=== PATIENT | female | born 1980 | race African-American/Black ===

== ENCOUNTER 2017-04-17 12:59 | Emergency (ER) | payer MEDICAID ==
[~2017-04-17] VITALS: Ht 152.4 cm; Wt 51.3 kg
[~2017-04-17 12:59] MED LIST: BENTYL10 MG ORAL; JUNEL1 EAC1 PO; RANITIDINE HCL150 MG ORAL; ZOFRAN ODT4 MG ORAL
[2017-04-17] MEDS ORDERED: IBUPROFEN600 MG ORAL (13:36)
[2017-04-17] MEDS ORDERED: Clindamycin 600mg 50 ML IVPB ONE (13:45)
[2017-04-17] MEDS ORDERED: Ketorolac 30mg Inj IV ONE (13:45)
[2017-04-17] MEDS ORDERED: CLINDAMYCIN HC300 MG ORAL (14:40)
[2017-04-17] MEDS ORDERED: NORCO 5-325 TA1 EAC1 ORAL (14:40)
[2017-04-17 14:42] VITALS: BP 117/72
--- NOTE | 2017-04-17 19:56 | Emergency Room Report ---
History of Present Illness General Chief Complaint: Toothache Source: Patient Present Illness HPI The patient is a 37 old female presenting for a left-sided mouth pain for the past 2 days. She states the pain has been progressing and is now a 7/10 dull ache. She also noticed swelling around the left lower teeth. Pain worse with chewing. She has been trying [id number] pain medications which has not been helping. She denies any fever or chills. She denies other symptoms including sore throat, difficulty swallowing, fever, chills Allergies: Coded Allergies: PENICILLINS (Verified Allergy, Unknown, 03/22/16) Patient History Past Medical History: see triage record Pertinent Family History: none Last Menstrual Period: Nexplanon to left upper arm. Now: No Reviewed Nursing Documentation: PMH: Agreed, PSxH: Agreed Review of Systems All Other Systems: negative except mentioned in HPI Physical Exam Vital Signs Date Time Temp Pulse Resp B/P (MAP) Pulse Ox O2 Delivery O2 Flow Rate FiO2 04/17/17 13:32 98.4 89 21 117/72 98 Room Air Sp02 EP Interpretation: reviewed, normal General Appearance: no apparent distress, alert, GCS 15, non-toxic Head: normocephalic, atraumatic Eyes: bilateral eye normal inspection, bilateral eye PERRL ENT: hearing grossly normal, normal pharynx, no angioedema, normal voice, uvula midline, other - TTP over the L lower gums. No abscess seen. Mild L lower facial swelling. No induration or fluctuance Neck: full range of motion, supple/symm/no masses Respiratory: chest non-tender, lungs clear, normal breath sounds, speaking full sentences Musculoskeletal: back normal, gait/station normal, normal range of motion, non- tender Neurologic: alert, oriented x3, responsive, motor strength/tone normal, sensory intact, speech normal Psychiatric: judgement/insight normal, memory normal, mood/affect normal, no suicidal/homicidal ideation Skin: normal color, no rash, warm/dry, well hydrated Lymphatic: no adenopathy Medical Decision Making PA Attestation Dr. Joseph is my supervising physician. Patient management was discussed with my supervising physician Diagnostic Impression: Primary Impression: Dental infection ER Course The patient is a 37 old female presenting for a left-sided mouth pain for the past 2 days. Diagnoses considered but not limited to: Dental rosie, dental abscess, toothache , gingivitis, among others PE: Afebrile. NAD TTP over the L lower gums. No abscess seen. Mild L lower facial swelling. No induration or fluctuance No lymphad The patient is given a first dose of antibiotics here and will be discharged with prescription for clindamycin as she has penicillin allergy. She will follow up with dentist as soon as possible. She is given indications to return Last Vital Signs Date Time Temp Pulse Resp B/P (MAP) Pulse Ox O2 Delivery O2 Flow Rate FiO2 04/17/17 14:42 98.4 21 117/72 98 Room Air 04/17/17 13:32 89 Status: improved Disposition: HOME, SELF-CARE Condition: Improved Scripts Hydrocodone Bit/Acetaminophen 5-325* (NORCO 5-325 TABLET*) 1 Each Tablet 1 TAB ORAL Q6HR Y for For Pain, #10 TAB Prov: JOSEFA IVAN 04/17/17 Clindamycin Hcl (CLINDAMYCIN HCL) 300 Mg Capsule 300 MG ORAL Q6HR, #28 CAP Prov: JOSEFA IVAN 04/17/17 Patient Instructions: Dental Pain Additional Instructions: I discussed my findings with the patient. All questions and concerns have been answered. Treatment and medication compliance have been addressed. I advised the patient that they need to follow up with PMD in 3-5 days. Return to ED if symptoms worsen, new symptoms arise, or if needed for any reason. Patient verbalized understanding of discharge instructions. Please follow up with dentist for further care JOSEFA IVAN Apr 17, 2017 19:56
== END 2017-04-17 14:42 | disposition home or self-care (01) ==
LOC: EMR 14:15
DX: K04.7 Periapical abscess without sinus (principal); Z88.0 Allergy status to penicillin
CPT/HCPCS: 96365; 96375; 99284; J1885; S0077

== ENCOUNTER 2019-09-15 15:37 | Emergency (ER) | payer OTHER ==
[~2019-09-15] VITALS: Ht 153 cm; Wt 54.0 kg
[~2019-09-15 15:37] MED LIST changes: +CLINDAMYCIN HC300 MG ORAL; +DICYCLOMINE HCL10 MG ORAL; +FAMOTIDINE20 MG ORAL; +IBUPROFEN600 MG ORAL; +NKM; +NORCO 5-325 TA1 EAC1 ORAL; +ONDANSETRON ODT4 MG BC
[2019-09-15 15:49] VITALS: BP 128/74
--- NOTE | 2019-09-15 15:49 | NUR ---
ED Nurse Note: Patient walked in to ED from home c/o lower abdominal cramps x2 days ago. Denies nausea, vomiting, diarrhea. Afebrile. Per pt, she has an implant control (Nexplanon), had her menstrual period 2 days ago and reports passing of blood clots. No SOB. VSS.
--- NOTE | 2019-09-15 16:05 | NUR ---
ED Nurse Note: IV line established. Blood and urine specimen collected and sent to lab.
[2019-09-15 16:19] LABS: APPEARANCE,URINE CLEAR; BILIRUBIN, URINE NEGATIVE (NEGATIVE); COLOR,URINE PALE YELLOW; GLUCOSE, URINE (UA) NEGATIVE (NEGATIVE); KETONES,URINE 2+ (NEGATIVE); LEUKOCYTE ESTERASE ,URINE NEGATIVE (NEGATIVE); NITRITE,URINE NEGATIVE (NEGATIVE); PH,URINE 5 (4.5-8.0); PROTEIN,URINE NEGATIVE (NEGATIVE); UROBILINOGEN,URINE NORMAL MG/DL (0.0-1.0)
[2019-09-15 16:39] LABS: ANION GAP 12 mmol/L (5-15); BLOOD UREA NITROGEN 19 mg/dL (7-18); CALCIUM 8.8 MG/DL (8.5-10.1); CARBON DIOXIDE 22 MMOL/L (21-32); CHLORIDE 104 MMOL/L (98-107); CREATININE 0.7 MG/DL (0.55-1.30); SODIUM 138 MMOL/L (136-145)
[2019-09-15 16:43] LABS: ALANINE AMINOTRANSFERASE 29 U/L (12-78); ALBUMIN 3.5 G/DL (3.4-5.0); ALKALINE PHOSPHATASE 162 U/L (46-116); ASPARTATE AMINO TRANSFERASE 19 U/L (15-37); BILIRUBIN,TOTAL 0.3 MG/DL (0.2-1.0)
[2019-09-15] MEDS ORDERED: Morphine Sulfate 2mg/ml Inj(IV/IM USE ONLY) IVP ONE (17:00)
[2019-09-15] MEDS ORDERED: Omnipaque-300 100ml vial INJ PRN (17:00)
[2019-09-15 17:02] LABS: BASOPHILS % (AUTO) 1.9 % (0.0-2.0); EOSINOPHILS % (AUTO) 1.5 % (0.0-3.0); HEMATOCRIT 40.7 % (37.0-47.0); HEMOGLOBIN 12.4 G/DL (12.0-16.0); LYMPHOCYTES % (AUTO) 30.3 % (20.0-45.0); MEAN CORPUSCULAR VOLUME 76 FL (80-99); MONOCYTES % (AUTO) 10.7 % (1.0-10.0); NEUTROPHILS % (AUTO) 55.6 % (45.0-75.0); PLATELET COUNT 173 K/UL (150-450); RED BLOOD COUNT 5.38 M/UL (4.20-5.40); WHITE BLOOD COUNT 9.3 K/UL (4.8-10.8)
--- NOTE | 2019-09-15 17:05 | NUR ---
ED Nurse Note: Pt was taken to CT via wc.
--- NOTE | 2019-09-15 17:21 | NUR ---
ED Nurse Note: Pt returned from CT.
--- NOTE | 2019-09-15 17:39 | Diagnostic Imaging Report ---
EXAM: CT Abdomen and Pelvis With Intravenous Contrast CLINICAL HISTORY: PAIN TECHNIQUE: Axial computed tomography images of the abdomen and pelvis with intravenous contrast. CTDI is 3.4 mGy and DLP is 168 mGy-cm. One or more of the following dose reduction techniques were used: automated exposure control, adjustment of the mA and/or kV according to patient size, use of iterative reconstruction technique. COMPARISON: No relevant prior studies available. FINDINGS: The lung bases demonstrate no acute infiltrate. The liver, biliary tree, pancreas, spleen, kidneys, and adrenal glands are within normal limits. There is no bowel obstruction or perforation. The appendix is unremarkable. There is a right adnexal cyst measuring 4.1 x 3.2 cm in greatest anteroposterior and craniocaudal dimensions on series 3, image 63. This is likely of ovarian origin. Atrophic truncal musculature. No acute fracture. No abdominal aortic aneurysm. IMPRESSION: 4.1 cm right adnexal cyst, probably of ovarian origin. Atrophic truncal musculature.
--- NOTE | 2019-09-15 17:41 | Emergency Room Report ---
History of Present Illness General Chief Complaint: Abdominal Pain Present Illness HPI 39-year-old female with no significant past medical history here complaining of a 7 out of 10 suprapubic pain that started 2 days ago and has been spotting and clotting for the past [address] years ago and. About 3 weeks ago. Patient does not know the status and reports that she is often sexually active. Denies any vaginal discharge at this time. Complains of dysuria urinary frequency. Reports her history of ovarian cyst however does not know which side and has not been seen by baster hand in a long time. Denies any diffuse abdominal pain, nausea vomiting diarrhea. Has not taken medication for symptom relief. 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 Does not take anything within the ibuprofen family. Patient is nontender with no guarding noted. Denies tobacco smoke, alcohol intake however reports that she often smokes marijuana. Allergies: Coded Allergies: PENICILLINS (Verified Allergy, Severe, 04/15/19) Blueberry (Verified Allergy, Unknown, 04/15/19) Quinteros (Verified Allergy, Unknown, 04/15/19) COVID-19 Screening Contact w/high risk pt: No Recent Travel to affected area: No Experienced COVID-19 symptoms?: No COVID-19 Testing performed CORRECTIONAL CASEWORK SPECIALIST: No Patient History Past Medical History: see triage record Past Surgical History: none Pertinent Family History: none Social History: Reports: drug use - marijuana Last Menstrual Period: 09/13/2019 Now: No Immunizations: UTD Reviewed Nursing Documentation: PMH: Agreed; PSxH: Agreed Review of Systems All Other Systems: negative except mentioned in HPI Physical Exam Vital Signs Date Time Temp Pulse Resp B/P (MAP) Pulse Ox O2 Delivery O2 Flow Rate FiO2 09/15/19 15:42 98.2 84 20 128/74 (92) 99 Room Air Sp02 EP Interpretation: reviewed, normal General Appearance: no apparent distress, alert, GCS 15, non-toxic Head: normocephalic, atraumatic Eyes: bilateral eye normal inspection, bilateral eye PERRL ENT: hearing grossly normal, normal pharynx, no angioedema, normal voice Neck: full range of motion, supple/symm/no masses Respiratory: chest non-tender, lungs clear, normal breath sounds, no rhonchi, no respiratory distress, no retraction, speaking full sentences Cardiovascular #1: regular rate, rhythm, no edema Gastrointestinal: non tender, soft, no mass, no organomegaly, no peritonitis, no bruit, no guarding, no hernia, no pulsatile mass Rectal: deferred Genitourinary: no CVA tenderness Musculoskeletal: back normal, normal range of motion, digits/nails normal, no calf tenderness Neurologic: alert, motor strength/tone normal, oriented x3, sensory intact, responsive, speech normal Psychiatric: judgement/insight normal, memory normal, mood/affect normal, no suicidal/homicidal ideation Skin: no rash Lymphatic: no adenopathy Medical Decision Making PA Attestation All my diagnosis and treatment plans were reviewed ad discussed with my supervising physician Dr. Burgos Diagnostic Impression: Primary Impression: Right ovarian cyst Additional Impression: UTI (urinary tract infection) ER Course 39-year-old female with no significant past medical history here complaining of a 7 out of 10 suprapubic pain that started 2 days ago and has been spotting and clotting for the past 2 days. Irregular menstrual. DrCarolina years ago and. About 3 weeks ago. Patient does not know the status and reports that she is often sexually active. Denies any vaginal discharge at this time. Complains of dysuria urinary frequency. Reports her history of ovarian cyst however does not know which side and has not been seen by baster hand in a long time. Denies any diffuse abdominal pain, nausea vomiting diarrhea. Has not taken medication for symptom relief. 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 Does not take anything within the ibuprofen family. Patient is nontender with no guarding noted. Denies tobacco smoke, alcohol intake however reports that she often smokes marijuana. Ddx considered but are not limited to: UTI, pyelonephritis, urinary incontinence , prolapsed bladder, uterine fibroids, ovarian cyst rupture, ovarian cyst rupture, ectopic versus 10 versus spontaneous Vital signs: are WNL, pt. is afebrile H&PE are most consistent with: Right ovarian cyst, UTI ORDERS: UA, urine cx, CBC, CMP, type and screen, [facility] ordered ultrasound however after status post negative primary CT scan of abdomen pelvis with contrast, Tylenol, Macrobid ED INTERVENTIONS: 1 g of morphine IV and Zofran IV, Tylenol DISCHARGE: At this time pt. is stable for d/c to home. Will provide printed patient care instructions, and any necessary prescriptions. Care plan and follow up instructions have been discussed with the patient prior to discharge. Patient to follow-up with gynecology as directed, increase oral hydration, if worsening symptoms return to emergency room CT/MRI/US Diagnostic Results CT/MRI/US Diagnostic Results : Imaging Test Ordered: CT abdomen pelvis with contrast Impression Right-sided ovarian cyst about 4.1 cm nonruptured otherwise normal Last Vital Signs Date Time Temp Pulse Resp B/P (MAP) Pulse Ox O2 Delivery O2 Flow Rate FiO2 09/15/19 16:52 98.3 09/15/19 15:49 84 20 128/74 99 Room Air Disposition: HOME, SELF-CARE Condition: Stable Scripts Nitrofurantoin Monohyd/M-Cryst* (MACROBID 100 MG*) 100 Mg Capsule 100 MG ORAL EVERY 12 HOURS for 7 Days, #14 CAP Prov: Brandi Lucas 09/15/19 Acetaminophen* (TYLENOL EXTRA STRENGTH*) 500 Mg Tablet 1000 MG ORAL Q8H PRN for Prn Headache/Temp > 101, #30 TAB 0 Refills Prov: Brandi Lucas 09/15/19 Referrals: NON PHYSICIAN (PCP) Patient Instructions: Ovarian Cyst, [id number] Additional Instructions: Take medication as directed, follow-up with your primary doctor for referral to baster hand, if worsening symptoms return to the emergency room. Brandi Lucas Sep 15, 2019 17:40
[2019-09-15] MEDS ORDERED: TYLENOL EXTRA500 MG ORAL (17:42)
[2019-09-15] MEDS ORDERED: NITROFURANTOIN100 M2 ORAL (17:47)
[2019-09-15 17:50] VITALS: BP 119/71
--- NOTE | 2019-09-15 17:50 | NUR ---
ED Nurse Note: Pt cleared by ERPA for discharge. DC instructions/prescription was given and explained to pt and verbalized understanding of teachings. All medical deviecs such as ID band and IV line removed. Pt is AAO x4, ambulatory and left with all personal belongings. P/u by .
== END 2019-09-15 17:50 | disposition home or self-care (01) ==
LOC: EMR 16:00
DX: N83.201 Unspecified ovarian cyst, right side (principal); N39.0 Urinary tract infection, site not specified; Z88.0 Allergy status to penicillin; Z91.018 Allergy to other foods; F12.90 Cannabis use, unspecified, uncomplicated
CPT/HCPCS: 36415; 74177; 80053; 81003; 81025; 85025; 86850; 86900; 86901; 96374; 96375; J2270; J2405; Q9967; Z7502; 99284

== ENCOUNTER 2019-09-19 11:54 | Emergency (ER) | payer OTHER ==
[~2019-09-19] VITALS: Ht 154.9 cm; Wt 51.3 kg
[~2019-09-19 11:54] MED LIST changes: +NITROFURANTOIN100 M2 ORAL; +TYLENOL EXTRA500 MG ORAL
[2019-09-19 12:18] VITALS: BP 121/69
--- NOTE | 2019-09-19 12:21 | NUR ---
ED Nurse Note: Patient walked in to ED d/t abdominal cramping with heavy bleeding since this morning at 0430. Per pt, she was here already last sunday and was dx with fibroids. Patient presented with crumping pain 12/10, stated has heavy bleeding, AAO x4, VSS at this time, skin is warm to touch, has even non-labored breathing.
[2019-09-19] MEDS ORDERED: Morphine Sulfate 4mg/ml Inj (IV USE ONLY) IVP ONE (12:45)
--- NOTE | 2019-09-19 13:00 | NUR ---
ED Nurse Note: us at bedside
[2019-09-19] MEDS ORDERED: Solu-MEDROL 125mg Inj IVP ONE (13:15)
[2019-09-19] MEDS ORDERED: DiphenhydrAMINE 50mg/ml Inj IVP ONE (13:15)
[2019-09-19 13:23] LABS: ANION GAP 11 mmol/L (5-15); BASOPHILS % (AUTO) 1.6 % (0.0-2.0); BLOOD UREA NITROGEN 12 mg/dL (7-18); CALCIUM 9.1 MG/DL (8.5-10.1); CARBON DIOXIDE 23 MMOL/L (21-32); CHLORIDE 105 MMOL/L (98-107); CREATININE 0.5 MG/DL (0.55-1.30); EOSINOPHILS % (AUTO) 1.8 % (0.0-3.0); HEMATOCRIT 42.9 % (37.0-47.0); HEMOGLOBIN 13.1 G/DL (12.0-16.0); LYMPHOCYTES % (AUTO) 32.2 % (20.0-45.0); MEAN CORPUSCULAR VOLUME 75 FL (80-99); MONOCYTES % (AUTO) 9.6 % (1.0-10.0); NEUTROPHILS % (AUTO) 54.9 % (45.0-75.0); PLATELET COUNT 181 K/UL (150-450); POTASSIUM 4.4 MMOL/L (3.5-5.1); RED BLOOD COUNT 5.71 M/UL (4.20-5.40); RED CELL DISTRIBUTION WIDTH 13.7 % (11.6-14.8); SODIUM 139 MMOL/L (136-145); WHITE BLOOD COUNT 7.3 K/UL (4.8-10.8)
[2019-09-19 13:28] LABS: ALANINE AMINOTRANSFERASE 40 U/L (12-78); ALBUMIN 3.7 G/DL (3.4-5.0); ALBUMIN/GLOBULIN RATIO 0.9 (1.0-2.7); ALKALINE PHOSPHATASE 169 U/L (46-116); ASPARTATE AMINO TRANSFERASE 32 U/L (15-37); BILIRUBIN,TOTAL 0.2 MG/DL (0.2-1.0)
[2019-09-19 13:36] LABS: APPEARANCE,URINE CLEAR; BILIRUBIN, URINE NEGATIVE (NEGATIVE); GLUCOSE, URINE (UA) NEGATIVE (NEGATIVE); KETONES,URINE NEGATIVE (NEGATIVE); LEUKOCYTE ESTERASE ,URINE 1+ (NEGATIVE); NITRITE,URINE NEGATIVE (NEGATIVE); PH,URINE 5 (4.5-8.0); PROTEIN,URINE NEGATIVE (NEGATIVE); UROBILINOGEN,URINE NORMAL MG/DL (0.0-1.0)
[2019-09-19 13:40] LABS: COLOR,URINE YELLOW
--- NOTE | 2019-09-19 14:12 | Diagnostic Imaging Report ---
Indication: Pelvic pain. Patient reportedly not Technique: Transabdominal and endovaginal pelvic ultrasound was performed. Findings: Uterus is normal in size. Endometrium measures 12 mm in thickness, within normal limits for the reproductive age female. Small probable nabothian cyst noted within the cervix. There is a 3 cm simple appearing cyst in the right ovary. No left adnexal lesion is demonstrated. Color and Doppler flow is demonstrated in the bilateral ovaries. No free pelvic fluid is demonstrated. IMPRESSION: Approximately 3 cm simple appearing cyst in the right ovary. Color and Doppler flow is demonstrated in the bilateral ovaries. No free pelvic fluid is demonstrated.
[2019-09-19 14:14] VITALS: BP 119/79
--- NOTE | 2019-09-19 14:14 | NUR ---
ER DISCHARGE NOTE: Patient is cleared to be discharged per ERMD, pt is aox4, on room air, with stable vital signs. pt was given dc and prescription instructions, pt was able to verbalize understanding, pt id band and iv site removed without complications. pt is able to ambulate with steady gait. pt took all belongings.
--- NOTE | 2019-09-20 16:22 | Emergency Room Report ---
History of Present Illness General Chief Complaint: Abdominal Pain Source: Patient Present Illness HPI 39-year-old female presents with abdominal pain and vaginal bleeding. Was seen here last week for similar presentation. Had a CT which showed a ovarian cyst. Patient states she has had persistent bleeding since. Pain is dull, 5 out of 10, nonradiating. No other aggravating relieving factors. Denies any other associated symptoms Allergies: Coded Allergies: PENICILLINS (Verified Allergy, Severe, 04/15/19) Blueberry (Verified Allergy, Unknown, 04/15/19) Quinteros (Verified Allergy, Unknown, 04/15/19) MORPHINE (Verified Allergy, Unknown, 09/19/19) COVID-19 Screening Contact w/high risk pt: No Recent Travel to affected area: No Experienced COVID-19 symptoms?: No COVID-19 Testing performed PATIENT TRANSITION SPECIALIST: No Patient History Past Medical History: none Past Surgical History: none Pertinent Family History: none Social History: Denies: smoking, alcohol use, drug use Now: No Immunizations: UTD Reviewed Nursing Documentation: PMH: Agreed; PSxH: Agreed Review of Systems All Other Systems: negative except mentioned in HPI Physical Exam Vital Signs Date Time Temp Pulse Resp B/P (MAP) Pulse Ox O2 Delivery O2 Flow Rate FiO2 09/19/19 12:05 98.1 78 20 121/69 (86) 97 Room Air Sp02 EP Interpretation: reviewed, normal General Appearance: no apparent distress, alert, GCS 15, non-toxic Head: normocephalic, atraumatic Eyes: bilateral eye normal inspection, bilateral eye PERRL ENT: hearing grossly normal, normal pharynx, no angioedema, normal voice Neck: full range of motion, supple/symm/no masses Respiratory: chest non-tender, lungs clear, normal breath sounds, speaking full sentences Cardiovascular #1: regular rate, rhythm, no edema Cardiovascular #2: 2+ carotid (R), 2+ carotid (L), 2+ radial (R), 2+ radial (L) , 2+ dorsalis pedis (R), 2+ dorsalis pedis (L) Gastrointestinal: normal bowel sounds, non tender, soft, non-distended, no guarding, no rebound Rectal: deferred Genitourinary: normal inspection, no CVA tenderness Musculoskeletal: back normal, normal range of motion, gait/station normal, non- tender Neurologic: alert, motor strength/tone normal, oriented x3, sensory intact, responsive, speech normal Psychiatric: judgement/insight normal, memory normal, mood/affect normal, no suicidal/homicidal ideation Reflexes: 3+ bicep (R), 3+ bicep (L), 3+ tricep (R), 3+ tricep (L), 3+ knee (R) , 3+ knee (L) Lymphatic: no adenopathy Medical Decision Making Diagnostic Impression: Primary Impression: Dysfunctional uterine bleeding ER Course Hospital Course 39-year-old female presents to ED complaining of vaginal bleeding Differential diagnoses include: gastrits, gastroenterits, ectopic , ovarian torsion/cyst, UTI Clinical course Patient placed on stretcher in ED. After initial history and physical I ordered labs, IV fluids and pain meds and pelvic ultrasound. Labs-no leukocytosis, electrolytes okay, beta hCG negative, UA negative Pelvic ultrasound-ovarian cyst. Patient developed a mild allergic reaction to the morphine. Given prednisone and Benadryl I discussed findings with patient. No signs of fibroid. Hemoglobin/hematocrit stable. Vitals stable. Patient states she does have an implant contraceptive. This could likely be causing the irregular bleeding at this point. States she will follow-up with her [facility]. Safe for discharge Diagnosis - dysfunctional uterine bleeding Stable and discharged to home. Followup with PMD/DULSER. Return to ED if symptoms recur or worsen Labs Test 09/19/19 12:43 White Blood Count 7.3 K/UL (4.8-10.8) Red Blood Count 5.71 M/UL (4.20-5.40) Hemoglobin 13.1 G/DL (12.0-16.0) Hematocrit 42.9 % (37.0-47.0) Mean Corpuscular Volume 75 FL (80-99) Mean Corpuscular Hemoglobin 23.0 PG (27.0-31.0) Mean Corpuscular Hemoglobin Concent 30.6 G/DL (32.0-36.0) Red Cell Distribution Width 13.7 % (11.6-14.8) Platelet Count 181 K/UL (150-450) Mean Platelet Volume 9.2 FL (6.5-10.1) Neutrophils (%) (Auto) 54.9 % (45.0-75.0) Lymphocytes (%) (Auto) 32.2 % (20.0-45.0) Monocytes (%) (Auto) 9.6 % (1.0-10.0) Eosinophils (%) (Auto) 1.8 % (0.0-3.0) Basophils (%) (Auto) 1.6 % (0.0-2.0) Prothrombin Time 10.9 SEC (9.30-11.50) Prothromb Time International Ratio 1.0 (0.9-1.1) Activated Partial Thromboplast Time 27 SEC (23-33) Urine Color Yellow Urine Appearance Clear Urine pH 5 (4.5-8.0) Urine Specific [place] 1.020 (1.005-1.035) Urine Protein Negative (NEGATIVE) Urine Glucose (UA) Negative (NEGATIVE) Urine Ketones Negative (NEGATIVE) Urine Blood 4+ (NEGATIVE) Urine Nitrite Negative (NEGATIVE) Urine Bilirubin Negative (NEGATIVE) Urine Urobilinogen Normal MG/DL (0.0-1.0) Urine Leukocyte Esterase 1+ (NEGATIVE) Urine RBC 5-10 /HPF (0 - 2) Urine WBC 0-2 /HPF (0 - 2) Urine Squamous Epithelial Cells Few /LPF (NONE/OCC) Urine Bacteria Few /HPF (NONE) Urine Mucus Few /LPF (NONE/OCC) Urine HCG, Qualitative Negative (NEGATIVE) Sodium Level 139 MMOL/L (136-145) Potassium Level 4.4 MMOL/L (3.5-5.1) Chloride Level 105 MMOL/L (98-107) Carbon Dioxide Level 23 MMOL/L (21-32) Anion Gap 11 mmol/L (5-15) Blood Urea Nitrogen 12 mg/dL (7-18) Creatinine 0.5 MG/DL (0.55-1.30) Estimat Glomerular Filtration Rate > 60 mL/min (>60) Glucose Level 96 MG/DL (74-106) Calcium Level 9.1 MG/DL (8.5-10.1) Total Bilirubin 0.2 MG/DL (0.2-1.0) Aspartate Amino Transf (AST/SGOT) 32 U/L (15-37) Alanine Aminotransferase (ALT/SGPT) 40 U/L (12-78) Alkaline Phosphatase 169 U/L (46-116) Total Protein 7.9 G/DL (6.4-8.2) Albumin 3.7 G/DL (3.4-5.0) Globulin 4.2 g/dL Albumin/Globulin Ratio 0.9 (1.0-2.7) Lipase 66 U/L (73-393) CT/MRI/US Diagnostic Results CT/MRI/US Diagnostic Results : Imaging Test Ordered: Pelvic ultrasound Impression Procedure: US Pelvic Transabdominal Indication: Pelvic pain. Patient reportedly not Technique: Transabdominal and endovaginal pelvic ultrasound was performed. Findings: Uterus is normal in size. Endometrium measures 12 mm in thickness, within normal limits for the reproductive age female. Small probable nabothian cyst noted within the cervix. There is a 3 cm simple appearing cyst in the right ovary. No left adnexal lesion is demonstrated. Color and Doppler flow is demonstrated in the bilateral ovaries. No free pelvic fluid is demonstrated. Last Vital Signs Date Time Temp Pulse Resp B/P (MAP) Pulse Ox O2 Delivery O2 Flow Rate FiO2 09/19/19 14:14 98.1 79 19 119/79 100 Room Air Status: improved Disposition: HOME, SELF-CARE Condition: Stable Referrals: Adelfo Roberts [facility] Patient Instructions: Abnormal Uterine Bleeding, [id number] Paolo Parker MD Sep 20, 2019 16:22
== END 2019-09-19 14:15 | disposition home or self-care (01) ==
LOC: EMR 12:40
DX: N93.8 Other specified abnormal uterine and vaginal bleeding (principal); Z88.0 Allergy status to penicillin; Z88.5 Allergy status to narcotic agent; Z91.018 Allergy to other foods
CPT/HCPCS: 36415; 76830; 76856; 80053; 81003; 81025; 83690; 85025; 85610; 85730; 86850; 86900; 86901; 96361; 96374; 96375; J1200; J2270; J2930; J7030; Z7502; 99284

== ENCOUNTER → 2019-12-04 | Emergency (ER) | payer MEDICAID, OTHER ==
[~2019-12-04] VITALS: Ht 165.1 cm; Wt 72.6 kg
[~2019-12-04] MED LIST changes: +HYDROcodone/Acetamin 5/325 tab ONE; +Ketorolac 60mg Inj IM ONE
[2019-12-04 12:03] VITALS: BP 147/77
--- NOTE | 2019-12-04 12:03 | NUR ---
ED Nurse Note: Pt walked in to Ed c/o right side generalized tootache onsent yesterday. Noted with facial grimacing. Pt unable to chew/ eat. No SOB, on room air. VSS.
--- NOTE | 2019-12-04 19:06 | Emergency Room Report ---
History of Present Illness General Chief Complaint: Toothache Source: Patient Present Illness HPI Dental pain to left upper mouth. onset 1 day ago. Allergies: Coded Allergies: PENICILLINS (Verified Allergy, Severe, 04/15/19) Blueberry (Verified Allergy, Unknown, 04/15/19) Quinteros (Verified Allergy, Unknown, 04/15/19) MORPHINE (Verified Allergy, Unknown, 09/19/19) COVID-19 Screening Contact w/high risk pt: No Recent Travel to affected area: No Experienced COVID-19 symptoms?: No COVID-19 Testing performed TOOTH CUTTER CLUTCH: No Patient History Last Menstrual Period: 11/10/19 Now: No Reviewed Nursing Documentation: PMH: Agreed; PSxH: Agreed Nursing Documentation-PMH Past Medical History: No History, Except For Physical Exam Vital Signs Date Time Temp Pulse Resp B/P (MAP) Pulse Ox O2 Delivery O2 Flow Rate FiO2 12/04/19 11:58 98.8 70 18 147/77 (100) 99 Room Air General Appearance: well appearing, no apparent distress, alert, GCS 15 Head: normocephalic, atraumatic ENT: hearing grossly normal, normal voice, other - multiple caries to teeth with exposed nerve root, no swelling or fluctuance Neck: full range of motion, supple Respiratory: no respiratory distress, speaking full sentences Musculoskeletal: no calf tenderness Neurologic: normal gait Psychiatric: mood/affect normal Skin: no rash Medical Decision Making Diagnostic Impression: Primary Impression: Dental infection ER Course Patient has dental pain with what appears to be dental caries. No evident of abscess. Patient given RX for Clindamycin and Tramadol. Last Vital Signs Date Time Temp Pulse Resp B/P (MAP) Pulse Ox O2 Delivery O2 Flow Rate FiO2 12/04/19 12:03 98.8 70 18 147/77 99 Room Air Status: improved Florentin Chris MD Dec 04, 2019 19:06
== END | disposition home or self-care (01) ==
LOC: EMR 12:10
DX: K04.7 Periapical abscess without sinus (principal); Z88.0 Allergy status to penicillin; Z88.5 Allergy status to narcotic agent; Z91.018 Allergy to other foods
CPT/HCPCS: 96372; Z7502; 99283

== ENCOUNTER 2020-05-23 21:07 | Emergency (ER) | payer MEDICAID ==
[~2020-05-23] VITALS: Ht 154.9 cm; Wt 54.4 kg
[~2020-05-23 21:07] MED LIST changes: -HYDROcodone/Acetamin 5/325 tab ONE; -Ketorolac 60mg Inj IM ONE
[2020-05-23 21:50] VITALS: BP 143/83
--- NOTE | 2020-05-23 21:50 | NUR ---
ED Nurse Note: Pt placed in RME, Pt walked into ED from home c/o right lower molar abscess with pain radiating to right ear 01/09. Pt states she saw her dentist and was prescribed ABX for abscess on left side, but now pain and abcess is staring to grow in right side.
[2020-05-23] MEDS ORDERED: CLINDAMYCIN HC300 MG ORAL (21:56)
[2020-05-23] MEDS ORDERED: HYDROCODON-ACE1 EA15 ORAL (21:56)
--- NOTE | 2020-05-23 21:59 | Emergency Room Report ---
History of Present Illness General Chief Complaint: Toothache Source: Patient Present Illness HPI 40-year-old female here with right lower dental pain. Patient has a history of dental caries and had multiple teeth pulled several months ago. Has been experiencing severe pain similar to her dental caries that she has had before but this time on tooth #31. Pain began yesterday. Denies any headaches or vision changes or focal numbness or weakness. Allergies: Coded Allergies: PENICILLINS (Verified Allergy, Severe, 04/15/19) Blueberry (Verified Allergy, Unknown, 04/15/19) Quinteros (Verified Allergy, Unknown, 04/15/19) MORPHINE (Verified Allergy, Unknown, 09/19/19) COVID-19 Screening Contact w/high risk pt: No Recent Travel to affected area: No Experienced COVID-19 symptoms?: No COVID-19 Testing performed [employer]DR[employer]: No Patient History Now: No Nursing Documentation-[facility] Past Medical History: No History, Except For Review of Systems All Other Systems: negative except mentioned in HPI Physical Exam Vital Signs Date Time Temp Pulse Resp B/P (MAP) Pulse Ox O2 Delivery O2 Flow Rate FiO2 05/23/20 21:41 98.2 92 18 143/83 (103) 100 Room Air Sp02 EP Interpretation: reviewed, normal General Appearance: no apparent distress, alert, non-toxic Head: normocephalic, atraumatic Eyes: bilateral eye normal inspection, bilateral eye PERRL ENT: hearing grossly normal, normal pharynx, no angioedema, normal voice, other - Dental caries and mild erythema of the gum at the base of tooth #31. No abscess Neck: full range of motion, supple/symm/no masses Respiratory: chest non-tender, lungs clear, normal breath sounds, speaking full sentences Cardiovascular #1: regular rate, rhythm, no edema Cardiovascular #2: 2+ carotid (R), 2+ carotid (L), 2+ radial (R), 2+ radial (L), 2+ dorsalis pedis (R), 2+ dorsalis pedis (L) Gastrointestinal: normal bowel sounds, non tender, soft, non-distended, no guarding, no rebound Rectal: deferred Genitourinary: normal inspection, no CVA tenderness Musculoskeletal: back normal, normal range of motion, calf tenderness, gait/station normal, non-tender Neurologic: alert, motor strength/tone normal, oriented x3, sensory intact, responsive, speech normal Psychiatric: judgement/insight normal, memory normal, mood/affect normal, no suicidal/homicidal ideation Reflexes: 3+ bicep (R), 3+ bicep (L), 3+ tricep (R), 3+ tricep (L), 3+ knee (R), 3+ knee (L) Lymphatic: no adenopathy Medical Decision Making Diagnostic Impression: Primary Impression: Dental caries Additional Impression: Dental infection ER Course 40-year-old female here with right lower tooth pain. Patient had dental caries and some gingival erythema at the base of tooth #31. That was the area in which she was complaining of pain. She had no evidence of apical abscess or any other abscess. She was speaking in full sentences with no evidence of trismus. She had normal neurologic examination. She was given a dose of clindamycin in the emergency department and pain medications. She does have an appointment with her dentist tomorrow morning. Was given a prescription for clindamycin and told to follow-up with her dentist. Discharged in stable condition. Last Vital Signs Date Time Temp Pulse Resp B/P (MAP) Pulse Ox O2 Delivery O2 Flow Rate FiO2 05/23/20 21:50 98.2 87 18 143/83 100 Room Air Disposition: HOME, SELF-CARE Condition: Stable Scripts Hydrocodone/Acetaminophen 5-325* (HYDROCODONE/ACETAMINOPHEN 5-325*) 1 Each Tablet 1 TAB ORAL Q4H PRN for For Pain, #10 TAB 0 Refills Prov: Karthik Guerrero M.D. 05/23/20 Clindamycin Hcl (CLINDAMYCIN HCL) 300 Mg Capsule 300 MG ORAL THREE TIMES A DAY, #21 CAP Prov: Karthik Guerrero M.D. 05/23/20 Referrals: [facility] Patient Instructions: Dental Pain Karthik Guerrero M.D. May 23, 2020 21:59
[2020-05-23] MEDS ORDERED: Ketorolac 30mg Inj IM ONE (22:00)
[2020-05-23] MEDS ORDERED: Clindamycin 150mg cap ORAL SCH (22:00)
[2020-05-23] MEDS ORDERED: HYDROcodone/Acetamin 5/325 tab ORAL ONE (22:00)
[2020-05-23 22:23] VITALS: BP 135/81
--- NOTE | 2020-05-23 22:23 | NUR ---
ER DISCHARGE NOTE: Patient is cleared to be discharged per ERMD, pt is aox4, on room air, with stable vital signs. Pt received pain medication, pt stated she did not want to stay for monitor period of 30mins. pt was given dc and prescription instructions, pt was able to verbalize understanding, pt id band removed. pt is able to ambulate with steady gait. pt took all belongings.
== END 2020-05-23 22:23 | disposition home or self-care (01) ==
LOC: EMR 21:20
DX: K02.9 Dental caries, unspecified (principal); K04.7 Periapical abscess without sinus; Z88.0 Allergy status to penicillin; Z88.6 Allergy status to analgesic agent; Z91.018 Allergy to other foods
CPT/HCPCS: 96372; J1885; Z7502; 99283